=== PATIENT | male | born 1990 | race Caucasian/White ===

== ENCOUNTER 2019-02-10 12:31 | Emergency (ER) | payer BC ==
[~2019-02-10] VITALS: Ht 182.8 cm; Wt 97.5 kg
[~2019-02-10 12:31] MED LIST: GLUCOSAMINE & C1 CA2 PO; KEFLEX500 MG PO; MOTRIN800 MG PO; VICODIN 5/500 505 MG PO; ZITHROMAX Z PA250 MG PO
[2019-02-10] MEDS ORDERED: ROBAXIN-750750 MG PO (12:56)
[2019-02-10] MEDS ORDERED: NAPROSYN500 MG PO (12:56)
[2019-02-10] MEDS ORDERED: MEDROL DOSEPAK4 MG PO (12:56)
== END 2019-02-10 13:16 | disposition home or self-care (01) ==
LOC: ED 12:31
DX: M54.41 Lumbago with sciatica, right side (principal); Z79.899 Other long term (current) drug therapy; X50.0XXA Overexertion from strenuous movement or load, initial encounter; Y93.89 Activity, other specified; Y92.89 Other specified places as the place of occurrence of the external cause; Y99.0 Civilian activity done for income or pay

== ENCOUNTER 2019-03-25 21:10 | Emergency (ER) | payer BC ==
[~2019-03-25] VITALS: Ht 182.8 cm; Wt 95.3 kg
[~2019-03-25 21:10] MED LIST changes: +MEDROL DOSEPAK4 MG PO; +NAPROSYN500 MG PO; +ROBAXIN-750750 MG PO
== END 2019-03-25 22:40 | disposition home or self-care (01) ==
LOC: ED 21:10
DX: S40.262A Insect bite (nonvenomous) of left shoulder, initial encounter (principal); Z79.899 Other long term (current) drug therapy; W57.XXXA Bitten or stung by nonvenomous insect and other nonvenomous arthropods, initial encounter; Y93.89 Activity, other specified; Y92.89 Other specified places as the place of occurrence of the external cause; Y99.8 Other external cause status

== ENCOUNTER 2020-02-09 09:05 | Emergency (ER) | payer BC ==
[~2020-02-09] VITALS: Ht 182.8 cm; Wt 95.3 kg
[2020-02-09] MEDS ORDERED: NAPROSYN500 MG PO ×3 (09:49→10:04)
[2020-02-09] MEDS ORDERED: MEDROL DOSEPAK4 MG PO ×3 (09:49→10:04)
[2020-02-09] MEDS ORDERED: METHOCARBAMOL500 M1 PO ×3 (09:49→10:04)
== END 2020-02-09 10:05 | disposition home or self-care (01) ==
LOC: ED 09:05
DX: M54.42 Lumbago with sciatica, left side (principal); Z79.899 Other long term (current) drug therapy

== ENCOUNTER → 2020-04-07 | Outpatient (CLI) | payer BC ==
[~2020-04-07] MED LIST changes: +METHOCARBAMOL500 M1 PO
== END | disposition home or self-care (01) ==
LOC: COVID19 02:08
PROVIDERS: ATTEND Family Medicine
DX: U07.1 COVID-19 (principal)

== ENCOUNTER 2022-05-27 09:29 | Emergency (ER) | payer BC ==
[~2022-05-27] VITALS: Ht 182.8 cm; Wt 95.3 kg
[2022-05-27] MEDS ORDERED: PREDNISONE50 MG PO (10:41)
[2022-05-27] MEDS ORDERED: CYCLOBENZAPRINE10 MG PO (10:41)
== END 2022-05-27 10:43 | disposition home or self-care (01) ==
LOC: ED 09:29
DX: M54.32 Sciatica, left side (principal); M54.31 Sciatica, right side; Z79.899 Other long term (current) drug therapy